=== PATIENT | male | born 1970 | race African-American/Black ===

== ENCOUNTER 2016-10-17 17:31 | Emergency (ER) | payer SELFPAY ==
[~2016-10-17] VITALS: Ht 180.3 cm; Wt 76.7 kg
--- NOTE | 2016-10-17 17:53 | Emergency Room Report ---
History of Present Illness General Chief Complaint: Medication Refill Source: EMS Present Illness HPI 46-year-old male presents emergency department c/o running out of his psychiatric medications Seroquel, Zyprexa and trazodone. Patient denies SI or HI. She denies other symptoms at this time. Patient denies nausea, vomiting, fevers, chills,, recent illness, SOB. Denies CP, Palpitations, LOC, AMS, dizziness, Changes in Vision, Sensation, paresthesias, or a sudden severe headache. Allergies: Coded Allergies: No Known Allergies (Unverified , 10/17/16) Patient History Past Medical History: see triage record Past Surgical History: none Pertinent Family History: none Immunizations: UTD Reviewed Nursing Documentation: PMH: Agreed, PSxH: Agreed Nursing Documentation-PMH Past Medical History: No History, Except For History Of Psychiatric Problem: Yes - ANXIETY Review of Systems All Other Systems: negative except mentioned in HPI Physical Exam Vital Signs Date Time Temp Pulse Resp B/P Pulse Ox O2 Delivery O2 Flow Rate FiO2 10/17/16 17:25 98.1 71 16 106/73 98 Room Air Sp02 EP Interpretation: reviewed, normal General Appearance: no apparent distress, alert, GCS 15, non-toxic Head: normocephalic, atraumatic Eyes: bilateral eye PERRL, bilateral eye normal inspection ENT: hearing grossly normal, normal pharynx, no angioedema, normal voice Neck: full range of motion, supple/symm/no masses Respiratory: chest non-tender, lungs clear, normal breath sounds, speaking full sentences Cardiovascular #1: regular rate, rhythm, no edema Rectal: deferred Musculoskeletal: back normal, gait/station normal, normal range of motion, non- tender, no calf tenderness Neurologic: alert, oriented x3, responsive, motor strength/tone normal, sensory intact, speech normal Psychiatric: judgement/insight normal, memory normal, mood/affect normal, no suicidal/homicidal ideation Skin: normal color, no rash, warm/dry, well hydrated Lymphatic: no adenopathy Medical Decision Making PA Attestation Dr. Alfonso is my supervising Physician whom patient management has been discussed with. Diagnostic Impression: Primary Impression: Encounter for medication refill ER Course Pt. presents to the ED c/o running out of his psychiatric medications Seroquel, Zyprexa and trazodone. Ddx considered but are not limited to: drug seeking, OD, need for routine medication refill Vital signs: are WNL, pt. is afebrile H&PE are most consistent with need for medication refill. ORDERS: none required at this time, the diagnosis is clinical ED INTERVENTIONS: None required at this time. *!*Pt. provided list of free or reduced cost health clinics for follow up *!* DISCHARGE: At this time pt. is stable for d/c to home. Will provide printed patient care instructions, and any necessary prescriptions. Care plan and follow up instructions have been discussed with the patient prior to discharge. Last Vital Signs Date Time Temp Pulse Resp B/P Pulse Ox O2 Delivery O2 Flow Rate FiO2 10/17/16 17:25 98.1 71 16 106/73 98 Room Air Disposition: HOME, SELF-CARE Condition: Stable Patient Instructions: Medicine Refill at the Emergency Department Additional Instructions: Take medications as directed. Follow up with PCP in 3-5 days Return sooner to ED if new symptoms occur, or current symptoms become worse. *!* Review provided list of free or reduced cost health clinics for follow up * !* Marcy Condon Oct 17, 2016 17:53
[2016-10-17] MEDS ORDERED: SEROQUEL400 MG ORAL (17:56)
[2016-10-17] MEDS ORDERED: ZYPREXA10 MG ORAL (17:56)
[2016-10-17] MEDS ORDERED: TRAZODONE HCL150 MG ORAL (17:56)
[2016-10-17 18:04] VITALS: BP 109/75
[2016-10-17 18:05] VITALS: BP 106/73
== END 2016-10-17 18:06 | disposition home or self-care (01) ==
LOC: EDBD 17:31 → EMR 18:03
DX: Z76.0 Encounter for issue of repeat prescription (principal); F17.200 Nicotine dependence, unspecified, uncomplicated; F41.9 Anxiety disorder, unspecified
CPT/HCPCS: 99281